=== PATIENT | male | born 1965 | race Caucasian/White ===

== ENCOUNTER → 2017-10-19 | Outpatient (CLI) | payer MEDICARE ==
--- NOTE | 2017-10-19 10:47 | MR ---
MR lumbar spine wo/w con Radiculopathy, lumbar region Gadavist Multiplanar, multiecho imaging of the lumbar spine was obtained without contrast on a 3 Claire magnet. REFERENCE: Previous study dated 04/08/2012. FINDINGS: Paraspinal soft tissues are normal. There has been a transaxial fusion at L5-S1. There is metallic susceptibility artifact in this region . Alignment is maintained. Cord signal is maintained. The conus ends normally at the level of the L1-2 disc space. At T12-L1, intervertebral foramina are well maintained. There is no significant compressive discopath y. The facets are unremarkable. At L1-2, there is disc space loss and disc desiccation. Intervertebral foramina are well maintained. There is a mild, bilobed disc displacement effacing the thecal sac. There is mild capsulitis within t he facets. At L2-3, there is disc space loss and disc desiccation. Intervertebral foramina appear well maintaine d. There is a diffuse disc displacement effacing the thecal sac. This hypertrophic change and capsuli tis in the facets. At L3-4, there is mild disc space loss and disc desiccation. Intervertebral foramina are well maintai baltazar. There is a diffuse disc displacement effacing the thecal sac. There is hypertrophic change and c apsulitis within the facets. At L4-5, there is mild disc space loss and disc desiccation. Intervertebral foramina are well maintai baltazar. There is a diffuse disc displacement. There are hypertrophic changes within the facets. At L5-S1, there is a transaxial fusion. There is no significant compressive discopathy. Intervertebra l foramina are well maintained. There is hypertrophic change within the facets. IMPRESSION: 1. DIFFUSE DEGENERATIVE DISC DISEASE AND FACET ARTHROPATHY. 2. NO SIGNIFICANT COMPRESSIVE DISCOPATHY OR NEURAL COMPRESSION. 3. POSTSURGICAL CHANGE.
== END | disposition home or self-care (01) ==
LOC: RADMRIMAIN 08:46
PROVIDERS: ATTEND Internal Medicine Rheumatology
DX: M51.16 Intervertebral disc disorders with radiculopathy, lumbar region (principal); M46.86 Other specified inflammatory spondylopathies, lumbar region; Z98.890 Other specified postprocedural states
CPT/HCPCS: 72158; A9581

== ENCOUNTER 2017-11-29 13:51 | Emergency (ER) | payer MEDICARE ==
[2017-11-29 14:07] VITALS: RESP 16; TEMP 98
--- NOTE | 2017-11-29 14:19 | ED ---
Lower Extremity Injury HPI - General Chief Complaint: Extremity Injury, Lower Stated Complaint: POSS RT HIP Fx Time Seen by Provider: 11/29/17 13:53 Source: patient, EMS, RN notes reviewed Mode of arrival: EMS Limitations: physical limitation - History of Present Illness Initial Comments: 52-year-old male present emergency Department chief complaint of right hip pain. Patient had surgery approximately 3 weeks ago at [facility]. Patient states that he slipped on some ice last night and states that he fell. His helped him back in the house and states that his been unable to bear any weight on it. Patient went to severe pain to his right hip. Denies head injury no loss of consciousness. Patient states that they did contact his surgeon and they are waiting for x-rays. - Related Data Home Medications Medication Instructions Recorded Confirmed Carisoprodol [Soma] 350 mg PO TID 09/28/15 11/29/17 Folic Acid 1 mg PO DAILY 09/28/15 11/29/17 Methotrexate Sodium (Pf) 25 mg IJ TH 09/28/15 11/29/17 [Methotrexate 25 mg/ml Vial] Tocilizumab [Actemra] 162 mg SQ Q14D 09/28/15 11/29/17 fentaNYL 100MCG/HR PATCH 1 patch TRANSDERM Q72H 09/28/15 11/29/17 [Duragesic 100Mcg/Hr Patch] Hydrocodone/Acetaminophen 1 tab PO BID PRN 11/29/17 11/29/17 [Hydrocodon-Acetaminoph 7.5-325] Allergies Allergy/AdvReac Type Severity Reaction Status Date / Time No Known Allergies Allergy Verified 11/29/17 14:10 Review of Systems ROS Statement: Those systems with pertinent positive or pertinent negative responses have been documented in the HPI. ROS Other: All systems not noted in ROS Statement are negative. Past Medical History Past Medical History: Cancer, Hyperlipidemia, Myocardial Infarction ([place]), Rheumatoid Arthritis ([place]) Additional Past Medical History / Comment(s): major fall in 1995, fx bilat arms , back, neck. skin ca-melonoma stomach area Last Myocardial Infarction Date:: 2011 History of Any Multi-Drug Resistant Organisms: None Reported Past Surgical History: Back Surgery, Heart Catheterization With Stent Additional Past Surgical History / Comment(s): colonoscopy. numerous sx r/t major fall in 1995 Past Anesthesia/Blood Transfusion Reactions: No Reported Reaction Date of Last Stent Placement:: 2011 Past Psychological History: No Psychological Hx Reported Smoking Status: Current every day smoker Past Alcohol Use History: None Reported Past Drug Use History: None Reported - Past Family History Father Family Medical History: Cancer General Exam Limitations: physical limitation General appearance: alert, in no apparent distress Neck exam: Present: normal inspection. Absent: tenderness, meningismus, lymphadenopathy Respiratory exam: Present: normal lung sounds bilaterally. Absent: respiratory distress, wheezes, rales, rhonchi, stridor Cardiovascular Exam: Present: regular rate, normal rhythm, normal heart sounds. Absent: systolic murmur, diastolic murmur, rubs, gallop, clicks GI/Abdominal exam: Present: soft, normal bowel sounds. Absent: distended, tenderness, guarding, rebound, rigid Extremities exam: Present: other (Right hip there is extreme tenderness to the right hip, there is equal pedal pulses bilaterally, patient is unable to actively move his right leg secondary to pain he is in the flexed position) Course Vital Signs 11/29/17 14:04 Temperature 98 F Pulse Rate 60 Respiratory 16 Rate Blood Pressure 137/79 O2 Sat by Pulse 95 Oximetry Medical Decision Making - Medical Decision Making 52-year-old male presented for right hip pain after fall recent surgery 3 weeks ago. Patient appears to have additional new fracture of the IT region. Patient will be transferred to [facility] so his surgeon Dr. Soliz can take care of him. Disposition Clinical Impression: Closed right hip fracture, Fall Disposition: OTHER INSTITUTION NOT DEFINED Condition: Stable Referrals: Brianna Hamlin MD [Primary Care Provider] - 1-2 days Time of Disposition: 15:14 - Out of Hospital Transfer - Req. Specs Out of Hospital Transfer - Requested Specifics: Other Emergency Center ( [facility])
[2017-11-29] MEDS: HYDROmorphone 0.5 MG/0.5 ML SYRINGE IVP STA ×2 (14:29→16:00)
--- NOTE | 2017-11-29 15:00 | XR ---
EXAMINATION TYPE: AP view pelvis and 2 views right hip DATE OF EXAM: 11/29/2017 COMPARISON: NONE HISTORY: 52 year-old male right hip pain after fall, hip surgery in October 2017 FINDINGS: Interbody lumbosacral fusion. There is percutaneous pinning of the proximal right femur traversing th e femoral neck. Fracture lucencies are seen in the intertrochanteric region and superior cortical mar gin of the femoral neck. No displaced fracture. No subluxation or dislocation. Orthopedic hardware ap pears intact. IMPRESSION: Fracture lucencies are seen in the intertrochanteric region and also along the superior aspect of the mid femoral neck. Percutaneous pinning is present relating to recent hip surgery. These could relate to the patient's known fractures for which surgery was performed. As no comparisons are available, a new fracture is difficult to exclude. Clinical correlation will be needed.
[2017-11-29 15:33] VITALS: BP 124/73; PULSE 67
== END 2017-11-29 16:04 | disposition other institution (70) ==
LOC: EC 13:51
DX: S72.001A Fracture of unspecified part of neck of right femur, initial encounter for closed fracture (principal); M06.9 Rheumatoid arthritis, unspecified; F17.200 Nicotine dependence, unspecified, uncomplicated; Z85.820 Personal history of malignant melanoma of skin; Z79.891 Long term (current) use of opiate analgesic; Z79.899 Other long term (current) drug therapy; W00.0XXA Fall on same level due to ice and snow, initial encounter; Y92.009 Unspecified place in unspecified non-institutional (private) residence as the place of occurrence of the external cause
CPT/HCPCS: 73502; 99284; 96374; J1170

== ENCOUNTER → 2019-10-08 | Outpatient (CLI) | payer MEDICARE ==
[2019-10-08 16:01] LABS: Chol/HDL Ratio 4.02
== END | disposition home or self-care (01) ==
LOC: LABWHC1 10:04
PROVIDERS: ATTEND Internal Medicine Cardiovascular Disease
DX: E78.2 Mixed hyperlipidemia (principal)
CPT/HCPCS: 36415; 80061; 84450; 84460

== ENCOUNTER 2020-03-25 17:10 | Emergency (ER) | payer MEDICARE ==
[2020-03-25 17:42] VITALS: RESP 18
[2020-03-25] MEDS ORDERED: CYCLOBENZAPRINE 10 MG TAB PO STA (18:04)
[2020-03-25] MEDS ORDERED: KETOROLAC 30 MG/ML 1 ML VIAL IM STA (18:04)
--- NOTE | 2020-03-25 18:39 | CT ---
EXAMINATION TYPE: CT thor lumbar spine wo con DATE OF EXAM: 03/25/2020 COMPARISON: None HISTORY: Back pain after injury x1 week ago CT DLP: 872.6 mGycm Automated exposure control for dose reduction was used. Images were obtained from the level of T1-S1 vertebra with no contrast. There is a pin fusing the L5 and S1 vertebral bodies. There is compression fracture of T10 vertebra w ith 30% loss of height. There is generalized osteopenia. There is compression fracture of T1 vertebra with 25% loss of height and biconcave change of the endplates. Fracture appears old. T10 fracture perales s sharp edges and could be an acute fracture. There is 10% depression of the superior endplate of T12 vertebra. Depression appears old. There is no thoracic paraspinal mass. Posterior elements are intact. I see no focal bone destruction. IMPRESSION: Multiple compression fractures as above. T10 fracture appears to be an acute fracture. Osteopenia.
[2020-03-25 20:08] VITALS: BP 134/90; PULSE 78; TEMP 97.6
--- NOTE | 2020-03-25 21:01 | ED ---
General Adult HPI - General Chief complaint: Back Pain/Injury Stated complaint: back pain Time Seen by Provider: 03/25/20 17:47 Source: patient, RN notes reviewed, old records reviewed Mode of arrival: ambulatory Limitations: no limitations - History of Present Illness Initial comments: 54-year-old male patient past history of rheumatoid arthritis presents to ED with chief complaint thoracic back pain. Patient reports that approximately one week ago he was attempting to remove a stump, he was pushing hard and he felt a pop in his mid thoracic back region has had significant pain since. Patient denies any paresthesias or lower extremity weakness or any changes in bowel or bladder control. Denies any other area of pain. Pt does hvae a history of a lumbar surgery many years back. Systemic: Pt denies fatigue, fever/chills, rash. Pt denies weakness, night sweats, weight loss. Neuro: Pt denies headache, visual disturbances, syncope or pre-syncope. HEENT: Pt denies ocular discharge or irritation, otalgia, rhinorrhea, pharyngitis or notable lymphadenopathy. Cardiopulmonary: Pt denies chest pain, SOB, heart palpitations, dyspnea on exertion. Abdominal/GI: Pt denies abdominal pain, n/v/d. : Pt denies dysuria, burning w/ urination, frequency/urgency. Denies new onset urinary or bowel incontinence. MSK: Pt denies loss of strength or function in extremities. Neuro: Pt denies new onset weakness, paresthesias. - Related Data Home Medications Medication Instructions Recorded Confirmed Carisoprodol [Soma] 350 mg PO TID 09/28/15 11/29/17 Folic Acid 1 mg PO DAILY 09/28/15 11/29/17 Methotrexate Sodium (Pf) 25 mg IJ TH 09/28/15 11/29/17 [Methotrexate 25 mg/ml Vial] Tocilizumab [Actemra] 162 mg SQ Q14D 09/28/15 11/29/17 fentaNYL 100MCG/HR PATCH 1 patch TRANSDERM Q72H 09/28/15 11/29/17 [Duragesic 100Mcg/Hr Patch] Hydrocodone/Acetaminophen 1 tab PO BID PRN 11/29/17 11/29/17 [Hydrocodon-Acetaminoph 7.5-325] Allergies Allergy/AdvReac Type Severity Reaction Status Date / Time No Known Allergies Allergy Verified 03/25/20 17:42 Review of Systems ROS Statement: Those systems with pertinent positive or pertinent negative responses have been documented in the HPI. ROS Other: All systems not noted in ROS Statement are negative. Past Medical History Past Medical History: Cancer, Hyperlipidemia, Myocardial Infarction ([place]), Rheumatoid Arthritis ([place]) Additional Past Medical History / Comment(s): major fall in 1995, fx bilat arms, back, neck. skin ca-melonoma stomach area Last Myocardial Infarction Date:: 2011 History of Any Multi-Drug Resistant Organisms: None Reported Past Surgical History: Back Surgery, Heart Catheterization With Stent Additional Past Surgical History / Comment(s): colonoscopy. numerous sx r/t major fall in 1995 Past Anesthesia/Blood Transfusion Reactions: No Reported Reaction Date of Last Stent Placement:: 2011 Past Psychological History: No Psychological Hx Reported Smoking Status: Current every day smoker Past Alcohol Use History: None Reported Past Drug Use History: None Reported - Past Family History Father Family Medical History: Cancer General Exam - General Exam Comments Initial Comments: Constitutional: NAD, AOX3, Pt has pleasant affect. HEENT: NC/AT, trachea midline, neck supple, no lymphadenopathy. External ears appear normal, without discharge. Mucous membranes moist. There is no scleral icterus. No pallor noted. Cardiopulmonary: RRR, no murmurs, rubs or gallops, no JVD noted. Lungs CTAB in anterior and posterior knutson. No peripheral edema. Abdominal exam: Abdomen soft and non-distended. Abdomen non-tender to palpation in all 4 quadrants. Bowel sounds active in LLQ. No hepatosplenomegaly. No ecchymosis Neuro: CN II-XII grossly intact. No nuchal rigidity. No raccon eyes, no falk sign, no hemotympanum. No cervical spinal tenderness. MSK: Mid thoracic back region mildly tender to palpation. No skin changes. 5 out of 5 strength psoas quadriceps muscles. Sensation intact. Limitations: no limitations Course Vital Signs 03/25/20 03/25/20 17:37 20:07 Temperature 98.2 F 97.6 F Pulse Rate 95 78 Respiratory 18 18 Rate Blood Pressure 138/92 134/90 O2 Sat by Pulse 98 97 Oximetry Medical Decision Making - Medical Decision Making 54-year-old male patient past history of rheumatoid arthritis presents to ED with chief complaint thoracic back pain. Patient reports that approximately one week ago he was attempting to remove a stump, he was pushing hard and he felt a pop in his mid thoracic back region has had significant pain since. Patient denies any paresthesias or lower extremity weakness or any changes in bowel or bladder control. Denies any other area of pain. Pt does hvae a history of a lumbar surgery many years back. PT VSS, afebrile. Physical exam displayed: Mid thoracic back region mildly tender to palpation. No Skin changes. 5 out of 5 strength psoas quadriceps muscles. Sensation intact. CT thoracic and lumbar spine without contrast was performed. There are multiple compression fractures. Compression fracture of T10 with 30% loss of height. Compression fracture T1 25% loss of height. 10% depression superior endplate of T12. The T10 compression fracture appears acute. This discussed with neck oswald from orthopedics. He recommended admission to hospital in a TLSO brace. Patient was initially agreeable to this state that he did have becoming tomorrow but if he is able to be seen early in the morning he would stay. I did discuss case with Dr. Syed who is going to admit as primary. Patient now is stating that he wants to leave immediately. I discussed risks with patient including potential paralysis. Patient does verbalize understanding. I provided patient with a prescription for a TLSO brace as well as the information for orthopedic consult outpatient basis and urged him to follow up as soon as possible. Also recommended following up with PCP tomorrow. Return precautions were discussed including sensation changes bowel or bladder changes, weakness, paresthesias. Patient verbalizes understanding. Case discussed with Dr. Gonzales. Disposition Clinical Impression: Thoracic compression fracture Disposition: Left Against Medical Advice Condition: Undetermined Instructions (If sedation given, give patient instructions): Acute Low Back Pain (ED) Additional Instructions: Follow-up with orthopedic consult tomorrow morning. Had a prescription for brace filled as soon as possible. Return to ED if condition worsens in anyway. Is patient prescribed a controlled substance at d/c from ED?: No Referrals: Brianna Hamlin MD [Primary Care Provider] - 1-2 days Kehinde Cheung PAC [PHYSICIAN [employer]CH[employer] TRANSPLANTER] - 1-2 days
== END 2020-03-25 21:10 | disposition left against medical advice (07) ==
LOC: EC 17:10
DX: S22.019A Unspecified fracture of first thoracic vertebra, initial encounter for closed fracture (principal); S22.079A Unspecified fracture of T9-T10 vertebra, initial encounter for closed fracture; I25.2 Old myocardial infarction; M06.9 Rheumatoid arthritis, unspecified; F17.200 Nicotine dependence, unspecified, uncomplicated; Z85.820 Personal history of malignant melanoma of skin; Z98.890 Other specified postprocedural states; Z95.5 Presence of coronary angioplasty implant and graft; Z79.891 Long term (current) use of opiate analgesic; Z79.899 Other long term (current) drug therapy; X50.1XXA Overexertion from prolonged static or awkward postures, initial encounter; Y92.89 Other specified places as the place of occurrence of the external cause
CPT/HCPCS: 72128; 72131; 99284; 96372; J1885

== ENCOUNTER → 2020-04-22 | Outpatient (CLI) | payer MEDICARE ==
--- NOTE | 2020-04-25 13:05 | BD ---
EXAMINATION TYPE: Axial Bone Density DATE OF EXAM: 04/22/2020 COMPARISON: NONE CLINICAL HISTORY: Height: 64.5 IN Weight: 122 LBS FRAX RISK QUESTIONS: History of Fracture in Adulthood: L-SPINE FX; RT HIP FX, CEDRICK WRIST FX Secondary Osteoporosis: Rheumatoid Arthritis: YES Current Tobacco Use: YES RISK FACTORS HISTORY OF: Hip Fracture (Right): YES Spine Fracture: L-SPINE History of Wrist Fracture: CEDRICK WRIST Surgery to Spine/Hip(right)/Wrist (CEDRICK): Active: YES Diet low in dairy products/other sources of calcium: YES Lost more than 2 inches in height since high school: YES MEDICATIONS: Osteoporosis Medications: NOT NOW Which medication: RECLAST INJ Additional Medications: CALCIUM , VIT D EXAM MEASUREMENTS: Bone mineral densitometry was performed using the [employer] System. Bone mineral density as measured about the Lumbar spine is: L-SPINE FX RT HIP FX Bone mineral density about the L hip (g/cm2): 0.601 T Score values are as follows: -----L Neck: -3.1 -----L Total: -2.8 Bone mineral density BASELINE CEDRICK WRIST FX IMPRESSION: Osteoporosis NOTE: T-SCORE=SD OF THE YOUNG ADULT MEAN.
== END | disposition home or self-care (01) ==
LOC: RADBDWWP 13:11
PROVIDERS: ATTEND Internal Medicine Rheumatology
DX: M81.0 Age-related osteoporosis without current pathological fracture (principal)
CPT/HCPCS: 77080

== ENCOUNTER 2020-11-19 00:08 | Emergency (ER) | payer MEDICARE ==
[2020-11-19] MEDS ORDERED: MORPHINE SULFATE 4 MG/ML SYRINGE IM STA (00:30)
--- NOTE | 2020-11-19 00:37 | ED ---
Fall HPI - General Chief Complaint: Fall Stated Complaint: Fall, bilateral wrist injury Time Seen by Provider: 11/19/20 00:15 Source: patient Mode of arrival: ambulatory - History of Present Illness Initial Comments: This patient is a 55-year-old man with history of rheumatoid arthritis who presents for evaluation after he had a fall today. The patient states that he was walking into a store proximally 10 hours ago when he thinks that he tripped over something fell forward and braced himself with both arms. He states that he feels pain to the right hand and wrist and the left forearm. The patient states that he tried to go home and manage with his home medications but the pain continued so he presents here for evaluation. He has also noticed swelling to the dorsum of the right hand. The patient denies any other injury. He did not have any loss of consciousness or head injury. No neck, back chest abdomen or other extremity pain. MD Complaint: fall Onset/Timin -: hour(s) Fall From: standing Fall Witnessed: yes, by bystander Loss of Consciousness: none Prolonged Down Time?: no Symptoms Prior to Fall: none Location - Extremities: Left: Forearm, Right: Hand Severity: moderate Quality: aching Context: tripped/slipped Associated Symptoms: denies - Related Data Home Medications Medication Instructions Recorded Confirmed Folic Acid 1 mg PO DAILY 09/28/15 11/29/17 Methotrexate Sodium (Pf) 25 mg IJ TH 09/28/15 11/29/17 [Methotrexate 25 mg/ml Vial] Tocilizumab [Actemra] 162 mg SQ Q14D 09/28/15 11/29/17 carisoprodoL [Soma] 350 mg PO TID 09/28/15 11/29/17 fentaNYL 100MCG/HR PATCH 1 patch TRANSDERM Q72H 09/28/15 11/29/17 [Duragesic 100Mcg/Hr Patch] Hydrocodone/Acetaminophen 1 tab PO BID PRN 11/29/17 11/29/17 [Hydrocodon-Acetaminoph 7.5-325] Allergies Allergy/AdvReac Type Severity Reaction Status Date / Time No Known Allergies Allergy Verified 11/19/20 00:14 Review of Systems ROS Statement: Those systems with pertinent positive or pertinent negative responses have been documented in the HPI. ROS Other: All systems not noted in ROS Statement are negative. Constitutional: Denies: fever, weakness Eyes: Denies: eye pain, vision change ENT: Denies: epistaxis Respiratory: Denies: cough, dyspnea Cardiovascular: Denies: chest pain, syncope Gastrointestinal: Denies: abdominal pain, vomiting Musculoskeletal: Reports: as per HPI, joint swelling, arthralgia. Denies: back pain Skin: Denies: lesions Neurological: Denies: headache, weakness, numbness, confusion Hematological/Lymphatic: Denies: easy bleeding Past Medical History Past Medical History: Cancer, Hyperlipidemia, Myocardial Infarction ([place]), Rheumatoid Arthritis ([place]) Additional Past Medical History / Comment(s): major fall in 1995, fx bilat arms, back, neck. skin ca-melonoma stomach area Last Myocardial Infarction Date:: 2011 History of Any Multi-Drug Resistant Organisms: None Reported Past Surgical History: Back Surgery, Heart Catheterization With Stent Additional Past Surgical History / Comment(s): colonoscopy. numerous sx r/t major fall in 1995 Past Anesthesia/Blood Transfusion Reactions: No Reported Reaction Date of Last Stent Placement:: 2011 Past Psychological History: No Psychological Hx Reported Smoking Status: Current every day smoker Past Alcohol Use History: None Reported Past Drug Use History: None Reported - Past Family History Father Family Medical History: Cancer General Exam Limitations: no limitations General appearance: alert, in no apparent distress Head exam: Present: atraumatic, normocephalic Eye exam: Present: normal appearance, PERRL, EOMI. Absent: scleral icterus, conjunctival injection ENT exam: Present: normal oropharynx Neck exam: Present: normal inspection, full ROM. Absent: tenderness Respiratory exam: Present: normal lung sounds bilaterally. Absent: respiratory distress, wheezes, rales, rhonchi, stridor Cardiovascular Exam: Present: regular rate, normal rhythm, normal heart sounds. Absent: systolic murmur, diastolic murmur, rubs, gallop Course Vital Signs 11/19/20 00:09 Temperature 98.9 F Pulse Rate 87 Respiratory 17 Rate Blood Pressure 113/78 O2 Sat by Pulse 99 Oximetry Disposition Clinical Impression: Contusion of forearm, left, Fall, Right wrist injury Disposition: HOME SELF-CARE Condition: Good Instructions (If sedation given, give patient instructions): Fall Prevention (ED), Wrist Injury (ED), Arm Pain (ED) Is patient prescribed a controlled substance at d/c from ED?: No Referrals: Brianna Hamlin MD [Primary Care Provider] - 1-2 days
--- NOTE | 2020-11-19 01:13 | XR ---
EXAM: XR Right Wrist Complete, 3 or More Views CLINICAL HISTORY: [email or web address].[email or web address] XR Reason: trauma TECHNIQUE: Frontal, lateral and oblique views of the right wrist. COMPARISON: No relevant prior studies available. FINDINGS: Bones/joints: No acute fracture or traumatic malalignment. Marked degenerative changes of the carpal bones and radiocarpal joint. Lucencies noted within the distal shaft of the radius, likely postsurgical. Soft tissues: Unremarkable. No radiopaque foreign body. IMPRESSION: No acute findings in the right wrist.
--- NOTE | 2020-11-19 01:14 | XR ---
EXAM: XR Left Forearm, 2 Views CLINICAL HISTORY: [email or web address] XR Reason: trauma TECHNIQUE: Frontal and lateral views of the left forearm. COMPARISON: No relevant prior studies available. FINDINGS: Bones/joints: No acute fracture or traumatic malalignment. Plate and screws noted about the ulna. Marked degenerative changes of the elbow. Soft tissues: Unremarkable. IMPRESSION: No acute fracture or traumatic malalignment.
--- NOTE | 2020-11-19 01:19 | XR ---
EXAM: XR Bilateral Hands Complete, 3 or More Views CLINICAL HISTORY: [email or web address].REASON XR Reason: trauma TECHNIQUE: Frontal, lateral and oblique views of the bilateral hands. COMPARISON: No relevant prior studies available. FINDINGS: Bones/joints: No acute fracture or traumatic malalignment.. Degenerative changes. Soft tissues: Unremarkable. No radiopaque foreign body. IMPRESSION: No acute fracture or traumatic malalignment..
[2020-11-19] MEDS ORDERED: HYDROmorphone 1 MG/ML 1 ML SYRINGE IM STA (02:05)
[2020-11-19 02:46] VITALS: BP 105/70; PULSE 86; RESP 15; TEMP 98.4
== END 2020-11-19 02:40 | disposition home or self-care (01) ==
LOC: EC 00:08
DX: S50.12XA Contusion of left forearm, initial encounter (principal); S60.211A Contusion of right wrist, initial encounter; M06.9 Rheumatoid arthritis, unspecified; F17.200 Nicotine dependence, unspecified, uncomplicated; I25.2 Old myocardial infarction; Z79.899 Other long term (current) drug therapy; Z85.828 Personal history of other malignant neoplasm of skin; Z95.5 Presence of coronary angioplasty implant and graft; Z98.890 Other specified postprocedural states; W01.0XXA Fall on same level from slipping, tripping and stumbling without subsequent striking against object, initial encounter; Y93.01 Activity, walking, marching and hiking; Z91.81 History of falling; Y92.512 Supermarket, store or market as the place of occurrence of the external cause
CPT/HCPCS: 73130; 73090; 73110; 99283; 96372 ×2; J2270; J1170

== ENCOUNTER → 2021-02-20 | Outpatient (CLI) | payer MEDICARE ==
--- NOTE | 2021-02-20 19:03 | MR ---
MR left ankle HISTORY: Achilles tendinitis Multiplanar multisequence imaging obtained through the left ankle No comparisons There is some motion on the exam. Linear low signal on T1 and T2-weighted sequences is consistent with a fracture line at the subtalar joint with intra-articular extension at the posterior facet, irregular fracture line extends to the l evel of the lateral aspect of the calcaneus, there is associated bone marrow edema, intermediate sign al on T1, increased signal in T2-weighted sequences involving the calcaneus. Additionally low signal line is present within the cuboid proximally and 80 vertical orientation with associated bone marrow edema. The Achilles tendon, plantar aponeurosis are intact. Fluid signal is present along the flexor tendons consistent with tenosynovitis. There is edema signal suspected within the musculature posterior to t he distal tibia. Distal tibial cortex at the level of the metaphysis shows some high signal on T2-bhargavi ghted sequences which could be related to osteitis. Ankle joint is intact. Flexor and extensor tendons are intact. Peroneal longus and brevis tendons are intact. Some probable mild reactive marrow edema in the talus. No definite ligamentous disruption. IMPRESSION: Tarsal fractures as described. Additional findings above. Dr. Stephens notified via [employer].
== END | disposition home or self-care (01) ==
LOC: RADMRIMAIN 15:10
PROVIDERS: ATTEND Orthopaedic Surgery
DX: S92.202A Fracture of unspecified tarsal bone(s) of left foot, initial encounter for closed fracture (principal); M76.62 Achilles tendinitis, left leg